=== PATIENT | female | born 1990 | race Two or more races ===

== ENCOUNTER 2021-06-27 09:52 | Outpatient (CLI) | payer OTHER ==
[~2021-06-27 09:52] MED LIST: FOLIC ACID1 MG PO; PRENATAL1 TAB PO
== END 2021-06-27 10:00 | disposition home or self-care (01) ==
LOC: SONOGRAMA 09:52
PROVIDERS: ATTEND Pathology Anatomic Pathology & Clinical Pathology
DX: D34 Benign neoplasm of thyroid gland (principal); E07.89 Other specified disorders of thyroid